=== PATIENT | female | born 1940 | race African-American/Black ===

== ENCOUNTER 2017-10-15 07:30 | Emergency (ER) | payer OTHER ==
[~2017-10-15] VITALS: Ht 170.2 cm; Wt 50.0 kg
[2017-10-15] MEDS ORDERED: DEXT 5%/0.45% NACL 1000ML 1,000 ML IV ONE (09:00)
[2017-10-15 09:07] LABS: HEMATOCRIT. 33.4 % (36.0-48.0); HEMOGLOBIN. 10.8 g/dL (12.0-16.0); MEAN CORPUSCULAR HEMOGLOBIN 27.1 pg (28.0-32.0); MEAN CORPUSCULAR VOLUME 83.5 fL (81.0-99.0); MEAN PLATELET VOLUME 10.8 fl (7.4-10.4); PLATELET 228 x1000/uL (130-400)
[2017-10-15 09:13] LABS: CHLORIDE 107 mEq/L (98-107)
[2017-10-15 09:14] LABS: PROTHROMBIN TIME 10.7 sec (9.4-11.6)
[2017-10-15 09:53] LABS: PLATELET ESTIMATE NORMAL
[2017-10-15 11:12] LABS: CLARITY URINE CLOUDY (CLEAR); COLOR URINE YELLOW (YELLOW); KETONES URINE TRACE (NEGATIVE); LEUKOCYTE ESTERASE URINE NEGATIVE (NEGATIVE); NITRITE URINE NEGATIVE (NEGATIVE); OCCULT BLOOD URINE 1+ (NEGATIVE); PH URINE 5.5 (4.5-8.0); PROTEIN URINE 3+ (NEGATIVE); UROBILINOGEN URINE 0.2 E.U./dL (0.2-1.0)
[2017-10-15] MEDS ORDERED: CLONIDINE 0.1MG TABLET PO ONE (12:00)
[2017-10-15 15:16] VITALS: BP 164/68
== END 2017-10-15 15:41 | disposition short-term general hospital (02) ==
LOC: ER 07:30
DX: E11.649 Type 2 diabetes mellitus with hypoglycemia without coma (principal); I10 Essential (primary) hypertension; Z88.0 Allergy status to penicillin
CPT/HCPCS: 36415; 71045; 80053; 81003; 82962; 85025; 85610; 93005; 96360; 99285; J3490

== ENCOUNTER 2018-04-23 13:10 | Emergency (ER) | payer OTHER ==
[~2018-04-23] VITALS: Ht 167.6 cm; Wt 55.0 kg
[2018-04-23 14:59] LABS: BASOPHILS % 0.5 % (0.0-2.0); EOSINOPHILS % 0.4 % (0.0-5.0); HEMATOCRIT. 36.9 % (36.0-48.0); LYMPHOCYTES % 9.1 % (20.0-50.0); MEAN CORPUSCULAR HEMOGLOBIN 29.3 pg (28.0-32.0); MEAN CORPUSCULAR VOLUME 90.1 fL (81.0-99.0); MEAN PLATELET VOLUME 9.2 fl (7.4-10.4); MONOCYTES % 6.6 % (2.0-8.0); NEUTROPHILS % 83.4 % (40.0-76.0); PLATELET 254 x1000/uL (130-400); RED CELL DISTRIBUTION WIDTH 18.5 % (11.6-14.6)
[2018-04-23 15:04] LABS: CHLORIDE 98 mEq/L (98-107); PROTHROMBIN TIME 10.1 sec (9.1-11.1)
[2018-04-23 16:27] VITALS: BP 167/74
== END 2018-04-23 18:29 | disposition short-term general hospital (02) ==
LOC: ER 13:10 → CANBEDREQ 18:35
DX: R55 Syncope and collapse (principal); E11.22 Type 2 diabetes mellitus with diabetic chronic kidney disease; I12.0 Hypertensive chronic kidney disease with stage 5 chronic kidney disease or end stage renal disease; N18.6 End stage renal disease; R79.89 Other specified abnormal findings of blood chemistry; H54.61 Unqualified visual loss, right eye, normal vision left eye; E88.09 Other disorders of plasma-protein metabolism, not elsewhere classified; Z99.2 Dependence on renal dialysis
CPT/HCPCS: 36415; 71045; 80053; 82962; 83605; 83880; 84484; 85025; 85610; 93005; 99285; C1893